=== PATIENT | female | born 1940 | race Caucasian/White ===

== ENCOUNTER 2018-12-24 14:28 | Emergency (ER) | payer MEDICARE, SELFPAY ==
[2018-12-24 14:30] VITALS: BP 121/76; PULSE 74; RESP 14; TEMP 36.7; O2SAT 97
--- NOTE | 2018-12-24 15:01 | ED.GENADUL_ITS ---
Discharge Plan Disposition Patient Disposition: HOME Condition: Stable Discharge Details Chief Complaint: RashLesion Clinical Impression: Skin plaque Primary Care Provider: Eric Graham ED Provider: Mat Castellanos Home Meds and New Rx's Prescriptions: New hydrocortisone 1 % cream 1 applic TP BID PRN (Reason: rash) Qty: 14.2 RF: 0 Continued amlodipine 5 MG tablet 5 mg PO DAILY RF: 0 pravastatin 10 MG tablet 40 mg PO DAILY RF: 0 enalapril maleate 5 MG tablet 20 mg PO DAILY RF: 0 multivitamin [Multi-Day] 1 EACH tablet 1 ea PO DAILY RF: 0 ascorbic acid (vitamin C) [Vitamin C] 1,000 MG tablet 1,000 mg PO DAILY RF: 0 aspirin, buffered 325 MG tablet 325 mg PO DAILY RF: 0 zinc 50 MG tablet 50 mg PO DAILY RF: 0 docusate sodium [Stool Softener] 100 MG tablet 200 mg PO DAILY RF: 0 vitamin B complex 1 EACH capsule 1 ea PO DAILY RF: 0 fish oil-dha-epa 1 EACH capsule 1 ea PO DAILY RF: 0 magnesium oxide 500 MG capsule 500 mg PO DAILY RF: 0 biotin 2,500 MCG capsule 2,500 - 5,000 mcg PO DAILY RF: 0 Metamucil (with sugar) 2,730 GM powder 2.6 gm PO DAILY RF: 0 cholecalciferol (vitamin D3) [Vitamin D3] 1,000 unit Tablet 1,000 unit PO DAILY RF: 0 Irlanda-D 24 Hour 1 EACH tablet extended release 24 hr 1 ea PO DAILY PRN PRNQty: 30 RF: 0 Discharge Instructions Additional Instructions: As we discussed, I will refer you to dermatology for follow-up. A referral was placed to care management today. Continue your regular medications. May trial the prescribed hydrocortisone cream. Return for more diffuse rash, the development of a fever, pain or any other acute concerns. Follow-up with your doctor in [place] upon your return to home. Medical Decision Making 78-year-old female who lives most of the year in [facility], presents with right lower extremity plaque that she is noted overlying the medial gastrocnemius for 2 weeks. It is raised, erythematous, nontender, without an underlying base, mass, or fluctuance. She returns to home in 6 to 8 weeks. I will refer her to dermatology for evaluation and consideration of punch biopsy. Referral placed to care m anagement and patient informed as to process. She is stable for discharge to home at this time HPI General Mode of arrival: ambulatory . Date/Time Provider Initiated Documentation: 12/24/18 14:53 . Limitations to Documentation: no limitations . Information obtained by: patient . History of Present Illness 78 year old F presents to the emergency department with the chief complaint of Right calf lesion, described as mild, Quality is described as constant, and is localized to the right and lower extremity. Patient reports no radiation. Patient started experiencing this week(s) and it has been constant. No relieving factors improve symptom(s), No exacerbating factors reported . Patient did receive the following treatments prior to arrival, none Related Data Home Medications Medication Instructions Recorded Confirmed amlodipine 5 mg PO DAILY 01/06/14 12/24/18 enalapril maleate 20 mg PO DAILY 01/06/14 12/24/18 pravastatin 40 mg PO DAILY 01/06/14 12/24/18 Metamucil (with sugar) 2.6 gm PO DAILY 01/08/16 12/24/18 ascorbic acid (vitamin C) [Vitamin 1,000 mg PO DAILY 01/08/16 12/24/18 C] aspirin, buffered 325 mg PO DAILY 01/08/16 12/24/18 biotin 2,500 - 5,000 mcg PO DAILY 01/08/16 12/24/18 docusate sodium [Stool Softener] 200 mg PO DAILY 01/08/16 12/24/18 fish oil-dha-epa 1 ea PO DAILY 01/08/16 12/24/18 magnesium oxide 500 mg PO DAILY 01/08/16 12/24/18 multivitamin [Multi-Day] 1 ea PO DAILY 01/08/16 12/24/18 vitamin B complex 1 ea PO DAILY 01/08/16 12/24/18 zinc 50 mg PO DAILY 01/08/16 12/24/18 Irlanda-D 24 Hour 1 ea PO DAILY PRN PRN #30 11/25/16 12/24/18 tab.er.24h cholecalciferol (vitamin D3) 1,000 unit PO DAILY 12/24/18 12/24/18 [Vitamin D3] hydrocortisone 1 applic TP BID PRN #14.2 gm 12/24/18 Previous Rx's Medication Instructions Recorded Irlanda-D 24 Hour 1 ea PO DAILY PRN PRN #30 07/21/17 tab.er.24h hydrocortisone 1 applic TP BID PRN #14.2 gm 12/24/18 Allergies Allergy/AdvReac Type Severity Reaction Status Date / Time No Known Allergies Allergy Unverified 12/24/18 14:37 General Stated Complaint: RashLesion NEW: 4 Review of Systems Review of Systems 6 systems reviewed and otherwise negative. No fever, chills, trauma, she is otherwise been well [facility] Social History Smoking/Tobacco Use Status: Current-Occasional Alcohol Intake: current Alcohol Intake frequency: a few times a month Drug use: Never Do you feel safe at home: Yes Do you feel safe in your relationship?: Yes Exam Narrative Exam Narrative: GEN: awake, alert, oriented 3. Pleasant, well groomed, interactive. HEAD: Normocephalic, atraumatic ENT: Mucous membranes moist, oropharynx unremarkable, External ear exam unrema rkable EYES: PERRL, EOMI EXT: Full ROM, no edema, normal sensation throughout. The right medial lower leg overlying the medial gastrocnemius on the anterior side shows a mobile, erythematous, slightly raised plaque that is nonblanching. It is not tender, there is no fluctuance. Neuro: Grossly normal neurologic exam, conversant, interactive. Psych: Speech fluent, thoughts congruent, affect normal Course Vital Signs Temperature 36.7 C 12/24/18 14:30 Pulse 74 12/24/18 14:30 Respiratory Rate 14 12/24/18 14:30 Blood Pressure 121/76 12/24/18 14:30 Pulse Oximetry 97 12/24/18 14:30 Temperature 36.7 C 12/24/18 14:30 Temperature Source Skin 12/24/18 14:30 Pulse 74 12/24/18 14:30 Respiratory Rate 14 12/24/18 14:30 Respiratory Effort 12/24/18 14:39 Blood Pressure 121/76 12/24/18 14:30 Blood Pressure Position Sitting 12/24/18 14:30 Pulse Oximetry 97 12/24/18 14:30 Oxygen Delivery Method Room Air 12/24/18 14:30 Oxygen Flow Rate 0 12/24/18 14:30 Pain Level 0 12/24/18 14:30
--- NOTE | 2018-12-25 15:09 | CMPROGNOTE_ITS ---
Care Management Progress Note Per MD request, CM faxed referral to [facility] for follow up.
--- NOTE | 2018-12-25 15:09 | PDOC.ERCMPRO ---
Care Management Progress Note Per MD request, CM faxed referral to [facility] for follow up.
== END 2018-12-24 15:09 | disposition home or self-care (01) ==
PROVIDERS: Emergency Provider Emergency Medicine; PCP Internal Medicine
DX: L98.8 Other specified disorders of the skin and subcutaneous tissue (principal)
CPT/HCPCS: 99283

== ENCOUNTER 2019-01-03 20:01 | Emergency (ER) | payer MEDICARE, SELFPAY ==
[2019-01-03 20:09] VITALS: BP 135/58; PULSE 66; RESP 16; TEMP 36.4; O2SAT 99
--- NOTE | 2019-01-03 20:20 | ED.GENADUL_ITS ---
Discharge Plan Disposition Patient Disposition: HOME Condition: Good Discharge Details Chief Complaint: Laceration Clinical Impression: Encounter for post-traumatic wound check Primary Care Provider: Eric Graham ED Provider: Laci Hernandez Meds and New Rx's Prescriptions: Continued amlodipine 5 MG tablet 5 mg PO DAILY RF: 0 pravastatin 10 MG tablet 40 mg PO DAILY RF: 0 enalapril maleate 5 MG tablet 20 mg PO DAILY RF: 0 multivitamin [Multi-Day] 1 EACH tablet 1 ea PO DAILY RF: 0 ascorbic acid (vitamin C) [Vitamin C] 1,000 MG tablet 1,000 mg PO DAILY RF: 0 aspirin, buffered 325 MG tablet 325 mg PO DAILY RF: 0 zinc 50 MG tablet 50 mg PO DAILY RF: 0 docusate sodium [Stool Softener] 100 MG tablet 200 mg PO DAILY RF: 0 vitamin B complex 1 EACH capsule 1 ea PO DAILY RF: 0 fish oil-dha-epa 1 EACH capsule 1 ea PO DAILY RF: 0 magnesium oxide 500 MG capsule 500 mg PO DAILY RF: 0 biotin 2,500 MCG capsule 2,500 - 5,000 mcg PO DAILY RF: 0 Metamucil (with sugar) 2,730 GM powder 2.6 gm PO DAILY RF: 0 cholecalciferol (vitamin D3) [Vitamin D3] 1,000 unit Tablet 1,000 unit PO DAILY RF: 0 hydrocortisone 1 % cream 1 applic TP BID PRN (Reason: rash) Qty: 14.2 RF: 0 Discharge Instructions Additional Instructions: Wound care as we discussed. Continue antibiotic ointment. Keep covered with Telfa gauze. Return to ED for fever, chills, leg pain/redness/swelling. Discharge Data Discharge Date/Time-TO BE ENTERED AT DEPARTURE: 01/03/19 20:39 Medical Decision Making Patient has a normal healing wound to the left holland. There is no evidence of infection. She is not diabetic and she has no vascular compromise. Continue wound care as before. HPI General Date/Time Provider Initiated Documentation: 01/03/19 20:19 . Limitations to Documentation: no limitations . Information obtained by: patient and RN notes reviewed . HPI Narrative: Patient presents to ED with scrape to her left holland which has been present for almost two weeks. She has been taking care of it at home. Today a friend of hers, who is a nurse, saw the wound and thought she should be evaluated. Patient denies significant pain. There is no fevers or chills. She has been using Bactroban cream that somebody gave her. Related Data Home Medications Medication Instructions Recorded Confirmed amlodipine 5 mg PO DAILY 01/06/14 01/03/19 enalapril maleate 20 mg PO DAILY 01/06/14 01/03/19 pravastatin 40 mg PO DAILY 01/06/14 01/03/19 Metamucil (with sugar) 2.6 gm PO DAILY 01/08/16 01/03/19 ascorbic acid (vitamin C) [Vitamin 1,000 mg PO DAILY 01/08/16 01/03/19 C] aspirin, buffered 325 mg PO DAILY 01/08/16 01/03/19 biotin 2,500 - 5,000 mcg PO DAILY 01/08/16 01/03/19 docusate sodium [Stool Softener] 200 mg PO DAILY 01/08/16 01/03/19 fish oil-dha-epa 1 ea PO DAILY 01/08/16 01/03/19 magnesium oxide 500 mg PO DAILY 01/08/16 01/03/19 multivitamin [Multi-Day] 1 ea PO DAILY 01/08/16 01/03/19 vitamin B complex 1 ea PO DAILY 01/08/16 01/03/19 zinc 50 mg PO DAILY 01/08/16 01/03/19 cholecalciferol (vitamin D3) 1,000 unit PO DAILY 12/24/18 01/03/19 [Vitamin D3] hydrocortisone 1 applic TP BID PRN #14.2 gm 12/24/18 01/03/19 Previous Rx's Medication Instructions Recorded hydrocortisone 1 applic TP BID PRN #14.2 gm 12/24/18 Allergies Allergy/AdvReac Type Severity Reaction Status Date / Time No Known Allergies Allergy Unverified 01/03/19 20:19 General Stated Complaint: Laceration NEW: 4 Review of Systems Constitutional Denies chills and Denies fever(s) Integumentary/Breasts Reports wounds [facility] Medical History COPD (chronic obstructive pulmonary disease) (Inactive) HTN (hypertension) (Chronic) Hypercholesterolemia (Acute) Surgical History S/P arthroscopic knee surgery (Acute) S/P hysterectomy (Acute) Social History Smoking/Tobacco Use Status: Current-Occasional Alcohol Intake: current Alcohol Intake frequency: a few times a month Drug use: Never Do you feel safe at home: Yes Do you feel safe in your relationship?: Yes Exam Const General: cooperative, comfortable and no acute distress Orientation: alert and oriented x3 Skin Other: Abrasion consistent with scraped holland on the left. Good eschar present with no drainage. Mild erythema around wound edges. No significant erythema, warmth, tenderness to suggest infection. Extrem Other: Left lower extremity without swelling or edema. Strong DP and PT pulse present. Course Vital Signs Temperature 97.5 F L 01/03/19 20:09 Pulse 66 01/03/19 20:09 Respiratory Rate 16 01/03/19 20:09 Blood Pressure 135/58 L 01/03/19 20:09 Pulse Oximetry 99 01/03/19 20:09 Temperature 97.5 F L 01/03/19 20:09 Temperature Source Skin 01/03/19 20:09 Pulse 66 01/03/19 20:09 Respiratory Rate 16 01/03/19 20:09 Blood Pressure 135/58 L 01/03/19 20:09 Blood Pressure Position Sitting 01/03/19 20:09 Pulse Oximetry 99 01/03/19 20:09 Oxygen Delivery Method Room Air 01/03/19 20:09 Oxygen Flow Rate 0 01/03/19 20:09 Pain Level 0 01/03/19 20:09
== END 2019-01-03 20:39 | disposition home or self-care (01) ==
PROVIDERS: Emergency Provider Emergency Medicine; PCP Internal Medicine
DX: S80.812A Abrasion, left lower leg, initial encounter (principal); X58.XXXA Exposure to other specified factors, initial encounter; J44.9 Chronic obstructive pulmonary disease, unspecified; F17.210 Nicotine dependence, cigarettes, uncomplicated; I10 Essential (primary) hypertension
CPT/HCPCS: 99282

== ENCOUNTER 2020-11-14 22:38 | Emergency (ER) | payer OTHER, MEDICARE, SELFPAY ==
[2020-11-14 22:28] VITALS: BP 190/79; PULSE 74; RESP 18; TEMP 36.4; O2SAT 100
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
[2020-11-14 22:44] LABS: Abs Immature Grans 0.02 10^3/uL (0.0-0.06); Absolute Basophil Count 0.08 10^3/uL (0.0-0.2); Absolute Eosinophil Count 0.47 10^3/uL (0.0-0.7); Absolute Lymphocyte Count 2.52 10^3/uL (1.2-3.4); Absolute Monocyte Count 0.74 10^3/uL (0.1-0.8); Absolute Neutrophil Count 4.86 10^3/uL (1.2-6.7); Basophils % 0.9; Eosinophils % 5.4; HCT 40.3 % (36.0-46.0); HGB 13.3 g/dL (11.2-15.7); Immature Grans % 0.2; MCH 31.7 pg (27.0-33.0); MPV 10.1 fL (8.0-11.0); Monocytes % 8.5; Nucleated RBC 0 %; Platelet Count 254 10^3/uL (130-400); RDW-SD 45.9 fL; WBC 8.69 10^3/uL (4.4-10.8)
[2020-11-14 22:45] VITALS: BP 184/81; PULSE 73; RESP 8; O2SAT 99
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
[2020-11-14 22:57] LABS: ALT 37 U/L (14-59); AST 32 U/L (15-37); Alkaline Phosphatase 125 U/L (46-116); Anion Gap 9.9 mmol/L (3-11); BUN 29 mg/dL (7-18); Bilirubin, Total 0.4 mg/dL (0.2-1.0); CO2 29.1 mmol/L (21.0-32.0); CREATININE 1.5 mg/dL (0.55-1.02); Calcium 9.5 mg/dL (8.5-10.1); Chloride 105 mmol/L (98-107); Estimated GFR 33.25 (mL/min/1.73m2); Glucose 102 mg/dL (74-106); Lipase 71 U/L (73-393); Sodium 144 mmol/L (136-145); Total Protein 7.6 g/dL (6.4-8.2)
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
[2020-11-14 23:02] LABS: ETHANOL BLOOD < 3.0 mg/dL (<3)
[2020-11-14 23:15] VITALS: BP 205/82; PULSE 74; RESP 16; O2SAT 100
[2020-11-14 23:50] LABS: Bilirubin Negative (Negative); Blood Trace-intact (Negative); Clarity Sl Cloudy (Clear); Glucose Negative (Negative); Ketones Negative (Negative); Leukocyte Esterase Trace (Negative); Nitrite Negative (Negative); Urobilinogen 0.2 EU/dL (Up TO 0.2)
[2020-11-15] VITALS (48 sets, daily range): BP systolic 156–201; BP diastolic 68–85; PULSE 74–83; RESP 10–22; O2SAT 84–100
[2020-11-15] LABS: Bacteria Few HPF (Negative); Epithelial Cells Rare HPF (Negative); WBC 0-2 HPF (0-5)
[2020-11-15] MEDS: Tetracaine 0.5% 4 ML BTL OP
[2020-11-15 00:01] LABS: C & S Indicated? No; Casts Negative LPF (Negative); Crystals Moderate Amorphous HPF (Negative); Mucus Negative (Negative)
[2020-11-15] MEDS: ceFAZolin 1 GM/50 ML BAG IVPB (00:01)
[2020-11-15] MEDS: Fluorescein STRIPS 100/BOX 1 MG OP ×2 (00:02→04:44)
[2020-11-15 00:10] LABS: *AMPHETAMINES SCREEN URINE Negative (Negative); *BARBITURATES SCREEN URINE Negative (Negative); *BENZODIAZEPINES SCREEN URINE Negative (Negative); Cannabinoids THC Negative (Negative); Cocaine Screen,Urine Negative (Negative); METHADONE URINE SCREEN Negative (Negative); OPIATES URINE SCREEN Negative (Negative); Tricyclic Antidepressants Negative (Negative)
[2020-11-15] MEDS: Tetanus & Diphtheria Tox,ADULT 0.5 ML VIAL IM (00:20)
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
[2020-11-15] MEDS: Lactated Ringers 1,000 ML 150 ML IV (00:25)
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
[2020-11-15] MEDS: Ondansetron 4 MG/2 ML VIAL IVP ×2 (01:12→04:45)
--- NOTE | 2020-11-15 01:15 | RT.EKG_ITS ---
APPROVED REPORT Exam: Resting ECG Reason for Exam: chest pain Patient Location: E HR:78 bpm ECG Measurements Heart Rate 78 AXIS NJ 166 P 72 QRSd 98 QRS 22 QT 409 T -39 QTc 465 Conclusion Sinus rhythm...normal P axis, V-rate 60- 99 Probable left atrial enlargement...P >50mS, <-0.10mV V1 Probable left ventricular hypertrophy...(RaVL+SV3)xQRSd >300 Nonspecific T abnormalities, inferior leads...T <-0.10mV, II III aVF I have reviewed and interpreted ECG and agree with software generated interpretation.
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
[2020-11-15] MEDS: Ketorolac 15 MG/ML VIAL IVP (04:42)
[2020-11-15] MEDS: Erythromycin Ophth Oint 3.5 GM TUBE OS (05:20)
[2020-11-15] MEDS: Ondansetron O.D.T. 4 MG TABEF, 3 TABS/BTL PO (05:20)
--- NOTE | 2020-11-16 06:27 | NUR.NOTE ---
Nursing Note: Referral faxed to ENT for follow up regarding ED visit.
== END 2020-11-15 05:31 | disposition home or self-care (01) ==
PROVIDERS: Emergency Provider Emergency Medicine; PCP Internal Medicine
DX: S06.0X0A Concussion without loss of consciousness, initial encounter (principal); S01.81XA Laceration without foreign body of other part of head, initial encounter; S02.2XXA Fracture of nasal bones, initial encounter for closed fracture; S61.512A Laceration without foreign body of left wrist, initial encounter; S05.02XA Injury of conjunctiva and corneal abrasion without foreign body, left eye, initial encounter; V40.5XXA Car driver injured in collision with pedestrian or animal in traffic accident, initial encounter; M79.632 Pain in left forearm; V53.6XXA Passenger in pick-up truck or van injured in collision with car, pick-up truck or van in traffic accident, initial encounter
CPT/HCPCS: 12001; 12014; 36415; 71250; 80053; 80307; 83690; 90471; 93005; 96361; 96365; 96375; 96376; 99285; 70450; 70486; 72125; 73090; 73130; 74176; 80320; 81003; 81015; 85025; 93010; J0690; J1885; J2405

== ENCOUNTER 2020-12-14 15:36 | Observation (INO) | payer MEDICARE, SELFPAY ==
[2020-12-14] VITALS (45 sets, daily range): BP systolic 99–153; BP diastolic 51–78; PULSE 52–70; RESP 12–21; TEMP 36.1–36.4; O2SAT 95–100
--- NOTE | 2020-12-14 15:30 | RT.EKG_ITS ---
APPROVED REPORT Exam: Resting ECG Reason for Exam: light headed Patient Location: E HR:60 bpm ECG Measurements Heart Rate 60 AXIS TN 172 P 74 QRSd 97 QRS 38 QT 430 T 77 QTc 429 Conclusion Sinus rhythm...normal P axis, V-rate 60- 99 no significant changes from ekg on 11/15
--- NOTE | 2020-12-14 16:15 | RT.EKG_ITS ---
APPROVED REPORT Exam: Resting ECG Reason for Exam: chest pain, presyncope Patient Location: E HR:57 bpm ECG Measurements Heart Rate 57 AXIS WI 179 P 68 QRSd 101 QRS 25 QT 441 T 61 QTc 431 Conclusion Sinus bradycardia...rate< 60
--- NOTE | 2020-12-14 16:30 | DI.CT_ITS ---
Exam(s) CT CHEST PE CTA EXAM: CT CHEST PE CTA CLINICAL HISTORY: chest pain, shortness of breath. TECHNIQUE: Imaging Protocol: Axial CT angiography was performed with multi-slice acquisition and mu lti-planar and/or 3D reconstructions. CONTRAST MATERIAL: Intravenous: Omnipaque 350 Contrast volume:100 ml COMPARISON: CT CT CHEST/ABD/PEL WO from 11/15/2020 FINDINGS: Pulmonary Arteries: No evidence of filling defect to suggest pulmonary emboli. Tracheobronchial tree: Patent where visualized. Mediastinum and Kristie: No dominant adenopathy or fluid collection. Pulmonary parenchyma: No consolidation or dominant measurable mass. Bilateral apical scarring and emp hysematous changes. Pleura: No effusion or pneumothorax. Heart: The heart is not dilated. Moderate coronary artery calcifications are seen. Aorta: Ascending aorta 4 cm. [id number] atherosclerotic changes. Upper abdomen: Large quantity of stool, otherwise unremarkable. Bones: Unremarkable for age. IMPRESSION: Apical scarring and emphysematous changes. No evidence of pulmonary embolism. RADIATION DOSE DELIVERED: 222.67mGy.cm Total DLP DATA REPOSITORY: All CT scans at this facility are submitted to the National Radiology Data Registry (NRDR) Dose Index Registry (DIR) with the [employer] (ACR). RADIATION OPTIMIZATION: All CT scans at this facility use at least one of these dose optimization te chniques: automated exposure control; mA and/or kV adjustment per patient size (includes targeted exa ms where dose is matched to clinical indication); or iterative reconstruction.
[2020-12-14 16:45] LABS: Abs Immature Grans 0.01 10^3/uL (0.0-0.06); Absolute Basophil Count 0.06 10^3/uL (0.0-0.2); Absolute Eosinophil Count 0.37 10^3/uL (0.0-0.7); Absolute Lymphocyte Count 1.78 10^3/uL (1.2-3.4); Absolute Monocyte Count 0.53 10^3/uL (0.1-0.8); Absolute Neutrophil Count 2.95 10^3/uL (1.2-6.7); Basophils % 1.1; Eosinophils % 6.5; HCT 36.5 % (36.0-46.0); HGB 11.9 g/dL (11.2-15.7); Immature Grans % 0.2; Lymphocytes % 31.2; MCH 32.2 pg (27.0-33.0); MCHC 32.6 % (32.0-36.0); MCV 98.9 fL (80-95); MPV 10.1 fL (8.0-11.0); Monocytes % 9.3; Neutrophils % 51.7; Nucleated RBC 0 %; Platelet Count 237 10^3/uL (130-400); RBC 3.69 10^6/uL (3.93-5.22); RDW 13.2 % (11.7-14.6); RDW-SD 48.2 fL
[2020-12-14 17:06] LABS: ALT 33 U/L (14-59); AST 38 U/L (15-37); Albumin 3.6 g/dL (3.4-5.0); Alkaline Phosphatase 94 U/L (46-116); Anion Gap 5.7 mmol/L (3-11); BUN 35 mg/dL (7-18); Bilirubin, Total 0.4 mg/dL (0.2-1.0); CO2 29.3 mmol/L (21.0-32.0); CREATININE 1.2 mg/dL (0.55-1.02); Calcium 8.9 mg/dL (8.5-10.1); Chloride 105 mmol/L (98-107); Estimated GFR 43.01 (mL/min/1.73m2); Glucose 100 mg/dL (74-106); Magnesium 2.1 mg/dL (1.8-2.4); NT-proBNP 96 pg/mL (<300); Potassium 4.4 mmol/L (3.5-5.1); Sodium 140 mmol/L (136-145); TSH 4.59 uIU/mL (0.36-3.74); Total Protein 6.8 g/dL (6.4-8.2); Troponin I < 0.05 ng/mL (<0.06)
[2020-12-14] MEDS: Normal Saline - Diluent 50 ML VIAL IV (17:36)
[2020-12-14] MEDS: Omnipaque 350 MG/ML 100 ML BTL IJ (17:36)
--- NOTE | 2020-12-14 18:25 | DI.VRAD_ITS ---
PROCEDURE INFORMATION: Exam: CTA Chest With Contrast Exam date and time: 12/14/2020 4:45 PM Age: 80 years old Clinical indication: Pain; On breathing TECHNIQUE: Imaging protocol: Computed tomographic angiography of the chest with contrast. 3D rendering (Not supervised by radiologist): MIP and/or 3D reconstructed images were created by the technologist. COMPARISON: CT CHEST/ABD/PEL WO 11/15/2020 12:06 AM FINDINGS: Pulmonary arteries: Hounsfield attenuation of the right pulmonary artery is 465 and therefore this study is diagnostic. No pulmonary emboli seen. Aorta: No aneurysm or dissection. There is atherosclerotic calcification to the aortic root, aortic arch, descending thoracic aorta and coronary arteries. Lungs: There is evidence of mild emphysematous changes. Atelectatic lung is seen within the posterior upper lobes with air bronchograms present, series 4, image 6. There is mild bibasilar dependent atelectasis. Pleural spaces: No pleural effusion or pneumothorax. Mediastinum: Visualized portion of the thyroid is normal in appearance. Heart size is upper limits of normal to minimally enlarged with cardiothoracic ratio of 12.9/25.1. No pericardial effusion or pneumothorax. Distal esophagus is unremarkable in appearance. Lymph nodes: No mediastinal lymphadenopathy. Superior abdomen: Visualized portion of the liver, gallbladder, kidneys, spleen and pancreas are unremarkable for patient's stated age. The stomach is moderately distended with enteric content. There is significant atherosclerotic calcification within the visualized abdominal aorta and splenic arteries. Bones/joints: No acute osseous injury or underlying osseous mass. Soft tissues: Unremarkable. IMPRESSION: 1. No pulmonary emboli. 2. Atelectatic lung within the posterior upper lobes with air bronchograms. Differential would include pulmonary consolidation, pulmonary edema, severe interstitial lung disease, non obstructive atelectasis, etc. 3. Mild emphysematous changes Dictated and Authenticated by: Cj Mcfarlane MD. Ordering:AURORA Gale MD
--- NOTE | 2020-12-14 19:27 | W.ED.GENAD ---
Discharge Plan Discharge Details Chief Complaint: Dizzy/Sync Admit Date/Time: 12/14/20 21:48 Admit Provider: Derek Butt Attending Provider: Derek Butt Primary Care Provider: Eric Graham ED Provider: Shahla England Discharge Data Discharge Date/Time-TO BE ENTERED AT DEPARTURE: 12/14/20 22:48 Medical Decision Making Patient is alert, oriented, pleasant, of decisional capacity Her story is concerning And She Had a Stress Test in September That Shows Inferior Lateral ST Changes with 1 Mm of Depression had worsening of her symptoms with persistent intermittent symptoms over the course of the past 3 days EKG and troponin are negative Case discussed with jeweler apprentice, Dr. Perera at [facility] and given patient's worsening symptoms, she will be accepted to their facility, however they do not have beds at this time, they believe they will be able to accept her tomorrow, Dr. Perera recommends metoprolol and aspirin, he does not recommend any additional intervention at this time, I will not initiate metoprolol at this time as her blood pressure was soft upon arrival and she did take her antihypertensives today, I discussed the case with Dr. Butt who is willing to admit the patient at this facility pending transfer to [facility] likely tomorrow She has been chest pain-free throughout this evaluation, she received 324 mg of aspirin Her blood pressure is stable and I see no need for additional intervention at this time Her CTA does not show acute pathology, when compared to prior it is unchanged She has a known thoracic aortic aneurysm of 4.2 cm without any evidence of rupture She has no evidence of pulmonary embolism Medical Records Medical records reviewed: Yes I reviewed the patient's medical records. Lab Data Lab results reviewed: Yes I reviewed the patient's lab results. ECG Data Prior ECG tracings: available for review HPI General Mode of arrival: ambulatory. Date/Time Provider Initiated Documentation: 12/14/20 16:01. Limitations to Documentation: no limitations. Information obtained by: patient. HPI Narrative: This 80-year-old female with history of hypertension presents with report of presyncopal symptoms for the past 3 days. Typically occurs around 12:48 in the afternoon the last approximately an hour. She reports chest tightness with lightheadedness. She denies any nausea. She denies any shortness of breath. She states that she has been experiencing these episodes for the past several months. She did have an episode in September she was evaluated by her primary care physician and had a Holter monitor and stress test performed at that time. She was told that her stress test was normal. She lives predominantly in [place] but of reside in [place] for several months of the year and has just recently acquired a primary care physician. She is not seen a jeweler apprentice here. She states that she had a syncopal event on November 22 and was not evaluated for this. She has not had a syncopal event during this occasion. States that her chest pain is since resolved and she is currently asymptomatic. Her symptoms began approximately 1230. She describes it as a pressure sensation and she feels like she needs to remove her bra. She states she felt fine during the day. She denies exertional component to her symptoms. She denies history of cardiac event. Related Data Home Medications Medication Instructions Recorded Confirmed Metamucil (with sugar) 2.6 g PO DAILY 01/08/16 12/14/20 ascorbic acid (vitamin C) [Vitamin 1,000 mg PO DAILY 01/08/16 12/14/20 C] aspirin,buffd-calcium carb-mag 325 mg PO DAILY 01/08/16 12/14/20 docusate sodium [Stool Softener] 200 mg PO DAILY 01/08/16 12/14/20 fish oil-dha-epa 1 ea PO DAILY 01/08/16 12/14/20 magnesium oxide 500 mg PO DAILY 01/08/16 12/14/20 multivitamin [Multi-Day] 1 ea PO DAILY 01/08/16 12/14/20 vitamin B complex 1 ea PO DAILY 01/08/16 12/14/20 zinc 50 mg PO DAILY 01/08/16 12/14/20 cholecalciferol (vitamin D3) 1,000 unit PO DAILY 12/24/18 12/14/20 [Vitamin D3] rosuvastatin 20 mg PO DAILY 11/14/20 12/14/20 amlodipine 5 mg tablet 5 mg PO BID tab 12/07/20 12/14/20 enalapril maleate 5 mg tablet 20 mg PO BID tab 12/07/20 12/14/20 Allergies Allergy/AdvReac Type Severity Reaction Status Date / Time No Known Allergies Allergy Verified 12/14/20 15:45 General Stated Complaint: Dizzy/Sync NEW: 3 Review of Systems All systems reviewed & are unremarkable except as noted in HPI and below PFSH Medical History (Updated 12/14/20 @ 21:45 by Derek Butt MD) COPD (chronic obstructive pulmonary disease) HTN (hypertension) Hypercholesterolemia Surgical History S/P arthroscopic knee surgery S/P hysterectomy Family History Father Heart disease Social History Smoking/Tobacco Use Status: Current-Occasional Smoking risk assessment performed?: Yes Alcohol Intake: current Alcohol Intake frequency: a few times a month Drug use: Never Do you feel safe at home: Yes Do you feel safe in your relationship?: Yes Exam Const General: cooperative and no acute distress HENMT Head: normal to inspection Mouth: oral mucosae normal Eyes Pupils: PERRL Chest Chest: normal inspection of the chest Resp Effort & Inspection: normal respiratory effort Auscultation: clear to auscultation bilaterally Cardio Rate: regular rate Rhythm: regular rhythm GI Inspection: normal to inspection Other: Nontender abdominal exam Skin General skin exam: no rashes or lesions noted Neuro General: patient alert and patient oriented x3 Extrem Other: Neurovascularly intact, no calf tenderness or swelling Psych Appearance: grossly normal Course Vital Signs Vital signs: Vital Signs Temperature 36.1 C L 12/14/20 15:41 Pulse 69 12/14/20 15:41 Respiratory Rate 17 12/14/20 15:41 Blood Pressure 99/51 L 12/14/20 15:41 Pulse Oximetry 99 12/14/20 15:41 Temperature 36.1 C L 12/14/20 15:41 Temperature Source Temporal Artery Scan 12/14/20 15:41 Pulse 60 12/14/20 18:00 Pulse 61 12/14/20 17:20 Respiratory Rate 16 12/14/20 19:20 Respiratory Effort Non-Labored 12/14/20 19:20 Respiratory Depth Normal 12/14/20 19:20 Respiratory Pattern Normal 12/14/20 19:20 Blood Pressure 128/62 12/14/20 17:45 Blood Pressure Mean 69 12/14/20 18:15 Blood Pressure Position Sitting 12/14/20 15:41 Pulse Oximetry 98 12/14/20 18:20 Oxygen Delivery Method Room Air 12/14/20 15:41 Oxygen Flow Rate 0 12/14/20 15:41 Pain Level 0 12/14/20 15:41 Lab/Test Results Lab/Test Results: Laboratory Tests Range/Units 12/14/20 12/14/20 16:36 16:36 WBC (4.4-10.8) 10^3/uL 5.70 RBC (3.93-5.22) 10^6/uL 3.69 L Hgb (11.2-15.7) g/dL 11.9 Hct (36.0-46.0) % 36.5 MCV (80-95) fL 98.9 H MCH (27.0-33.0) pg 32.2 MCHC (32.0-36.0) % 32.6 RDW (11.7-14.6) % 13.2 Plt Count (130-400) 10^3/uL 237 MPV (8.0-11.0) fL 10.1 Immature Gran % 0.2 Neutrophils % 51.7 Lymphocytes % 31.2 Monocytes % 9.3 Eosinophils % 6.5 Basophils % 1.1 Nucleated RBC % % 0 Absolute Neutrophils (1.2-6.7) 10^3/uL 2.95 Absolute Lymphocytes (1.2-3.4) 10^3/uL 1.78 Absolute Monocytes (0.1-0.8) 10^3/uL 0.53 Absolute Eosinophils (0.0-0.7) 10^3/uL 0.37 Absolute Basophils (0.0-0.2) 10^3/uL 0.06 Sodium (136-145) mmol/L 140 Potassium (3.5-5.1) mmol/L 4.4 Chloride (98-107) mmol/L 105 Carbon Dioxide (21.0-32.0) mmol/L 29.3 Anion Gap (3-11) mmol/L 5.7 BUN (7-18) mg/dL 35 H Creatinine (0.55-1.02) mg/dL 1.2 H Estimated GFR/1.73 m2 (mL/min/1.73m2) 43.01 Glucose (74-106) mg/dL 100 Calcium (8.5-10.1) mg/dL 8.9 Magnesium (1.8-2.4) mg/dL 2.1 Total Bilirubin (0.2-1.0) mg/dL 0.4 AST (15-37) U/L 38 H ALT (14-59) U/L 33 Alkaline Phosphatase (46-116) U/L 94 Troponin I (<0.06) ng/mL < 0.05 NT-Pro-B Natriuret Pep (<300) pg/mL 96 Total Protein (6.4-8.2) g/dL 6.8 Albumin (3.4-5.0) g/dL 3.6 TSH (0.36-3.74) uIU/mL 4.59 H
[2020-12-14 19:57] LABS: Troponin I < 0.05 ng/mL (<0.06)
[2020-12-14] MEDS: Aspirin 81 MG CHEW 324 MG CH (20:28)
--- NOTE | 2020-12-14 21:37 | HPE_ITS ---
Date of service: 12/14/20 Time of Service: 21:37 Assessment and Plan Assessment and plan (1) Chest pain: Status: Acute Assessment and plan: Atypical CP, modest probability ACS. Will continue ASA, trend trop and await transfer [facility] for cath. Usual meds as is in meantime. Reviewed ADs, requests Full Code. History of Present Illness History of Present Illness Chief Complaint: CP Narrative: 80 female had several episodes of exertional chest pain in September. Stress test (in [place]) reported to be negative. 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 Denies any palliative or provocative factors, just resolves spontaneously. Similar episode today, and further noted BP to be in 90s so came for evaluation. No CP since arrival. Here in ER w/u of note for trop neg x two, EKG showing approx [address] depression lead ll, minimal other inferior leads, all similar to baseline. CTA negative. Case reviewed with [facility], accepted by service of Dr. Perera with probable bed in AM for planned cath. Patient states she feels entirely well at present. Review of Systems All systems reviewed & are unremarkable except as noted in HPI and below PFSH Medical History (Updated 12/14/20 @ 21:45 by Derek Butt MD) COPD (chronic obstructive pulmonary disease) HTN (hypertension) Hypercholesterolemia Surgical History S/P arthroscopic knee surgery S/P hysterectomy Family History Father Heart disease Social History Smoking/Tobacco Use Status: Current-Occasional Smoking risk assessment performed?: Yes Alcohol Intake: current Alcohol Intake frequency: a few times a month Drug use: Never Do you feel safe at home: Yes Do you feel safe in your relationship?: Yes Meds Allergies and Home Medications Allergies Allergy/AdvReac Type Severity Reaction Status Date / Time No Known Allergies Allergy Verified 12/14/20 15:45 Home Medications Medication Instructions Recorded Confirmed Type Metamucil (with sugar) 2.6 g PO DAILY 01/08/16 12/14/20 History ascorbic acid (vitamin C) [Vitamin 1,000 mg PO DAILY 01/08/16 12/14/20 History C] aspirin,buffd-calcium carb-mag 325 mg PO DAILY 01/08/16 12/14/20 History docusate sodium [Stool Softener] 200 mg PO DAILY 01/08/16 12/14/20 History fish oil-dha-epa 1 ea PO DAILY 01/08/16 12/14/20 History magnesium oxide 500 mg PO DAILY 01/08/16 12/14/20 History multivitamin [Multi-Day] 1 ea PO DAILY 01/08/16 12/14/20 History vitamin B complex 1 ea PO DAILY 01/08/16 12/14/20 History zinc 50 mg PO DAILY 01/08/16 12/14/20 History cholecalciferol (vitamin D3) 1,000 unit PO DAILY 12/24/18 12/14/20 History [Vitamin D3] rosuvastatin 20 mg PO DAILY 11/14/20 12/14/20 History amlodipine 5 mg tablet 5 mg PO BID tab 12/07/20 12/14/20 History enalapril maleate 5 mg tablet 20 mg PO BID tab 12/07/20 12/14/20 History Exam Narrative Exam Narrative: 133/78, 62, 36.1, 16, 99% RA. HEENT atraumatic; neck supple, JVP<4cm; lungs clear; heart RRR; abdomen soft and NT; extremities w/o edema, pulse 2+/=; neuro Ox3, moves all 4s Results Labs Result diagrams: 12/14/20 16:36 12/14/20 16:36 Labs: Laboratory Results - last 24 hr 12/14/20 12/14/20 12/14/20 16:36 16:36 19:30 WBC 5.70 RBC 3.69 L Hgb 11.9 Hct 36.5 MCV 98.9 H MCH 32.2 MCHC 32.6 RDW 13.2 Plt Count 237 MPV 10.1 Immature Gran % 0.2 Neutrophils % 51.7 Lymphocytes % 31.2 Monocytes % 9.3 Eosinophils % 6.5 Basophils % 1.1 Nucleated RBC % 0 Absolute Neutrophils 2.95 Absolute Lymphocytes 1.78 Absolute Monocytes 0.53 Absolute Eosinophils 0.37 Absolute Basophils 0.06 Sodium 140 Potassium 4.4 Chloride 105 Carbon Dioxide 29.3 Anion Gap 5.7 BUN 35 H Creatinine 1.2 H Estimated GFR/1.73 m2 43.01 Glucose 100 Calcium 8.9 Magnesium 2.1 Total Bilirubin 0.4 AST 38 H ALT 33 Alkaline Phosphatase 94 Troponin I < 0.05 NT-Pro-B Natriuret Pep 96 Total Protein 6.8 Albumin 3.6 TSH 4.59 H Serum HCG, Qual Cancelled 12/14/20 19:35 WBC RBC Hgb Hct MCV MCH MCHC RDW Plt Count MPV Immature Gran % Neutrophils % Lymphocytes % Monocytes % Eosinophils % Basophils % Nucleated RBC % Absolute Neutrophils Absolute Lymphocytes Absolute Monocytes Absolute Eosinophils Absolute Basophils Sodium Potassium Chloride Carbon Dioxide Anion Gap BUN Creatinine Estimated GFR/1.73 m2 Glucose Calcium Magnesium Total Bilirubin AST ALT Alkaline Phosphatase Troponin I < 0.05 NT-Pro-B Natriuret Pep Total Protein Albumin TSH Serum HCG, Qual Last Vital Signs Temp 36.1 C L 12/14/20 15:41 Pulse 62 12/14/20 19:01 Resp 16 12/14/20 19:20 BP 133/78 12/14/20 18:45 Pulse Ox 99 12/14/20 20:10
[2020-12-14 23:11] LABS: Source Nasal/Nares
[2020-12-15] VITALS (112 sets, daily range): BP systolic 114–139; BP diastolic 68–93; PULSE 52–70; RESP 12–25; O2SAT 100
[2020-12-15 00:03] LABS: COVID-19 PCR Negative (Negative)
[2020-12-15] MEDS: Lactated Ringers 1,000 ML 50 ML IV (00:10)
[2020-12-15] MEDS: Melatonin 3 MG TAB PO (00:12)
[2020-12-15 04:50] LABS: Troponin I < 0.05 ng/mL (<0.06)
--- NOTE | 2020-12-15 07:15 | RT.EKG_ITS ---
APPROVED REPORT Exam: Resting ECG Reason for Exam: chest pain Patient Location: I HR:57 bpm ECG Measurements Heart Rate 57 AXIS TX 179 P 76 QRSd 97 QRS 18 QT 449 T 82 QTc 439 Conclusion Sinus bradycardia...rate< 60 Probable left atrial enlargement...P >50mS, <-0.10mV V1 Nonspecific T abnormalities, lateral leads...T <-0.10mV, I aVL V5 V6
--- NOTE | 2020-12-15 08:10 | W.PM.PROGNOT ---
Subjective Subjective Interval history since last seen: No CP overnight or this am. Echo this am. LR @ 50 cc. SB 58-65. BP 123/72 Not requiring oxygen. Objective Last Vital Signs Temp 36.4 C L 12/14/20 23:23 Pulse 60 12/15/20 03:31 Resp 19 12/15/20 03:31 BP 114/93 H 12/15/20 03:31 Pulse Ox 100 12/14/20 23:23 Laboratory Results - last 24 hr 12/14/20 12/14/20 12/14/20 16:36 16:36 19:30 WBC 5.70 RBC 3.69 L Hgb 11.9 Hct 36.5 MCV 98.9 H MCH 32.2 MCHC 32.6 RDW 13.2 Plt Count 237 MPV 10.1 Immature Gran % 0.2 Neutrophils % 51.7 Lymphocytes % 31.2 Monocytes % 9.3 Eosinophils % 6.5 Basophils % 1.1 Nucleated RBC % 0 Absolute Neutrophils 2.95 Absolute Lymphocytes 1.78 Absolute Monocytes 0.53 Absolute Eosinophils 0.37 Absolute Basophils 0.06 Sodium 140 Potassium 4.4 Chloride 105 Carbon Dioxide 29.3 Anion Gap 5.7 BUN 35 H Creatinine 1.2 H Estimated GFR/1.73 m2 43.01 Glucose 100 Calcium 8.9 Magnesium 2.1 Total Bilirubin 0.4 AST 38 H ALT 33 Alkaline Phosphatase 94 Troponin I < 0.05 NT-Pro-B Natriuret Pep 96 Total Protein 6.8 Albumin 3.6 TSH 4.59 H Serum HCG, Qual Cancelled COVID-19 Source SARS-CoV-2 (PCR) 12/14/20 12/14/20 12/15/20 19:35 22:15 04:18 WBC RBC Hgb Hct MCV MCH MCHC RDW Plt Count MPV Immature Gran % Neutrophils % Lymphocytes % Monocytes % Eosinophils % Basophils % Nucleated RBC % Absolute Neutrophils Absolute Lymphocytes Absolute Monocytes Absolute Eosinophils Absolute Basophils Sodium Potassium Chloride Carbon Dioxide Anion Gap BUN Creatinine Estimated GFR/1.73 m2 Glucose Calcium Magnesium Total Bilirubin AST ALT Alkaline Phosphatase Troponin I < 0.05 < 0.05 NT-Pro-B Natriuret Pep Total Protein Albumin TSH Serum HCG, Qual COVID-19 Source Nasal/Nares SARS-CoV-2 (PCR) Negative
[2020-12-15] MEDS: Aspirin 325 MG TAB PO (08:34)
[2020-12-15] MEDS: amLODIPine 5 MG TAB PO ×2 (08:35→19:12)
[2020-12-15] MEDS: Rosuvastatin 10 MG TAB 20 MG PO (08:36)
[2020-12-15] MEDS: Enalapril 5 MG TAB 20 MG PO ×2 (08:37→19:11)
--- NOTE | 2020-12-15 08:47 | DI.US_ITS ---
APPROVED REPORT EXAM: Comprehensive 2D, Doppler, and color-flow Echocardiogram Patient Location: In-Patient Room/Bed: [id number] Indications: Unstable Angina Other Information Study Quality: Adequate Conclusion Left Ventricle : The left ventricle is normal size. The left ventricular ejection fraction is within the normal range. There is normal left ventricular wall thickness. There is discrete upper septal wa ll thickening. There is normal LV segmental wall motion. LVEF is 60%. Right Ventricle : The right ventricle is normal size. The right ventricular systolic function is norm al. The RVSP is 37.6mmHg. Atria : The left atrium size is normal. Right atrium is mildly dilated. Mitral Valve : The mitral valve is normal in structure. Mild mitral regurgitation. No evidence of ida ral valve stenosis. Great Vessels : The aortic root is normal in size. Ascending aorta is not well visualized. Aortic arc h is normal in caliber. The IVC collapses <50% with inspiration. Please see remainder of study for further details. Wall motion Left Ventricle The left ventricle is normal size. The left ventricular ejection fraction is within the normal range. There is normal left ventricular wall thickness. There is discrete upper septal wall thickening. The re is normal LV segmental wall motion. There is no ventricular septal defect visualized. LVEF is 60%. Right Ventricle The right ventricle is normal size. The right ventricular systolic function is normal. The RVSP is 37 .6mmHg. Atria The left atrium size is normal. Right atrium is mildly dilated. The interatrial septum is intact with no evidence for an atrial septal defect. Aortic Valve The Aortic valve is sclerotic. Aortic valve is trileaflet. There is no aortic valvular stenosis. Trac e aortic regurgitation. Mitral Valve The mitral valve is normal in structure. No evidence of mitral valve stenosis. Mild mitral regurgitat ion. Tricuspid Valve The tricuspid valve is normal in structure. There is no tricuspid valve stenosis. Mild tricuspid regu rgitation. Pulmonic Valve The pulmonary valve is normal in structure. There is no pulmonic valvular stenosis. Trace pulmonic re gurgitation. Great Vessels The aortic root is normal in size. Ascending aorta is not well visualized. Aortic arch is normal in c aliber. The IVC collapses <50% with inspiration. Pericardium There is no pericardial effusion. 2D Dimensions IVSD d PLAX 0.97 cm F: 0.6-1.0 LV Vol A2C d MOD 63.7 mL LVPW d PLAX 0.93 cm F: 0.6 - 1.0 LV Vol A4C d MOD 79.9 mL LVID d PLAX 4.29 cm F: 3.8 - 5.2 LV EF A4C MOD 60.7 % LVDs 2.85 cm F: 2.2 - 3.5 LV EF A2C MOD 59.6 % Ao Root d 3.33 cm F: 2.7 - 3.3 LV EF Biplane MOD 58.6 % RA Area A4C 13.77 cm2 SV 42.14 mL RA Vol/ BSA A4C s A-L 24.8 mL/m2 SV Index 24.90 mL/m2 LV EF Teichholz 62.2 % LVEF (Whitehead's) 58.63 % F: 54 - 74 LV Volume 57.17 mL F: 46 - 106 LV Volume Index 33.82 mL/m2 F: 29 - 61 LV Vol Biplane MOD 71.9 mL FS 33.25 % M-Mode TAPSE 3.21 cm (M/F) >1.7 LV Diastology E/A Ratio 1.0 MV E Vmax 0.63 (0.4-1.3 m/s) MV A Vmax 0.65 (0.4-1.3 m/s) MV E/A Ratio 0.90 Aortic Valve LVOT Area 3.67 cm2 AoV Area Vmax 2.67 cm2 LVOT Vmax 1.17 m/s AoV Area/ BSA (Vmax) 1.58 cm2/m2 LVOT Mean Rzea. 0.78 m/s EDITH Mean Reza. 2.40 cm2 LVOT Peak Grad 5.5 mmHg EDITH Mean Reza. Index 1.42 cm2/m2 LVOT Mean Grad 2.8 mmHg LVOT VTI 0.265 m LVOT Diam s 2.15 cm AoV Vmax 1.61 m/s Velocity Ratio 0.72 AoV Mean Reza. 1.19 m/s AoV Peak Grad 10.4 mmHg LVOT SV 97.18 mL AoV Mean Grad 6.3 mmHg AoV VTI 0.430 m AoV Area VTI 2.26 cm2 AoV Area/ BSA (VTI) 1.33 cm/m2 Mitral Valve MV DT 231 (160-240 msec) MR Vmax 3.37 m/s MV PHT 67 msec MR VTI 1.142 m MV Area PHT 3.28 cm2 MR Peak Grad 45.5 mmHg MV VTI 0.238 m MR Mean Grad 33.2 mmHg MV VTI Annulus 0.231 m MV Area VTI 3.94 (4.0-6.0 cm2) Pulmonary Valve PV Vmax 1.04 (0.5-1.5 m/s) RVOT Peak Gr. 1.76 mmHg PV Peak Grad 4.3 mmHg RVOT Mean Gr. 1.10 mmHg PV Mean Grad 2.6 mmHg RVOT VTI 0.160 m PV VTI 0.260 m RVOT Vmax 0.66 m/s Tricuspid Valve TR Peak Grad 29.6 mmHg TR Vmax 2.72 m/s RA Pressure 8.00 mmHg RVSP (TR) 37.6 mmHg
--- NOTE | 2020-12-15 09:02 | NUR.NOTE ---
Patient advised she has home medications that are not currently on her medication list here at [facility]. Had to call [facility] for dosing on home medications, as the patient could not remember. Patient has requested metamucil. magnesium oxide 500 QHS, colace 200mg QHS, lubricating eye drops and Wellbutrin SR 150mg BID. Will follow up with the provider about these medications.
[2020-12-15 09:39] LABS: Anion Gap 8.7 mmol/L (3-11); BUN 27 mg/dL (7-18); CO2 26.3 mmol/L (21.0-32.0); CREATININE 0.9 mg/dL (0.55-1.02); Calcium 8.6 mg/dL (8.5-10.1); Calculated LDL 56 mg/dL (<100); Chloride 112 mmol/L (98-107); Cholesterol 135 mg/dL (<200); Estimated GFR 59.94 (mL/min/1.73m2); Glucose 97 mg/dL (74-106); HDL Cholesterol 71 mg/dL (40-60); Magnesium 2.1 mg/dL (1.8-2.4); Potassium 4.6 mmol/L (3.5-5.1); Sodium 147 mmol/L (136-145); Triglyceride 41 mg/dL (<150)
[2020-12-15] MEDS: SODIUM CHLORIDE 0.45% 1,000 ML 75 ML IV (11:21)
--- NOTE | 2020-12-15 13:53 | W.PM.DS.N ---
Date of service: 12/15/20 Time of Service: 13:54 DS: Diagnosis Discharge Diagnosis (1) Unstable angina: Status: Suspected (2) H/O syncope: Status: Chronic Asessment and Plan: while seated Extended cardiac monitoring with nonsustained SVT (3) Hypercholesterolemia: Status: Chronic (4) HTN (hypertension): Status: Chronic (5) COVID-19 ruled out by laboratory testing: Status: Ruled-out Discharge Plan Disposition Patient Disposition: [facility] Condition: Fair Discharge Details Reason For Visit: CP Admit Date/Time: 12/14/20 21:48 Admit Provider: Derek Butt Attending Provider: Derek Butt Primary Care Provider: Eric Graham Hospital Course Hospital Course: Ms Burnette is an 80 year old female with PMHx of hypertension, hyperlipidemia, non-oxygen dependent COPD, and a prior recent syncopal episode while seated who was observed on [facility] hospitalist service from 12/14/20 until 12/15/20 after presenting with chest discomfort (tightness) accompanied by dizziness at rest. The patient does have an abnormal EKG at baseline but this has not changed and her troponins have remained negative. She did not have recurrences of chest pain since her hospitalization with us. She did not have any evidence of arrhythmia with us, but the patient does describe several episodes of dizziness after running as well as a syncopal episode while seated. She had both extended cardiac monitoring and a stress echocardiogram done at [facility] earlier this summer. Based on results available to me, she appears to have had multiple bouts of nonsustained SVT on the Zio patch (or equivalent) as well as PVCs. She wore her monitor for 1 week. Her Stress echo did not show wall motion abnormalities but did not abnormalities in her EKG at baseline. Due to the recurrence of patient's symptoms at rest, unstable angina +/- SVT are suspected, and the patient was accepted in transfer at [facility] by Dr Perera of cardiology for further evaluation, including possible cardiac cath, unavailable at [facility]. Care for patient as well as completion of her transfer summary on day of transfer took 45 minutes. please, look at MAR for list of inpatient medications. The list below reflects the patient's outpatient medications. Home Meds and New Rx's Prescriptions: No Action amlodipine 5 mg tablet 5 mg PO BID RF: 0 enalapril maleate 5 mg tablet 20 mg PO BID RF: 0 multivitamin [Multi-Day] 1 EACH tablet 1 ea PO DAILY RF: 0 ascorbic acid (vitamin C) [Vitamin C] 1,000 MG tablet 1,000 mg PO DAILY RF: 0 aspirin,buffd-calcium carb-mag 325 MG tablet 325 mg PO DAILY RF: 0 zinc 50 MG tablet 50 mg PO DAILY RF: 0 docusate sodium [Stool Softener] 100 MG tablet 200 mg PO DAILY RF: 0 vitamin B complex 1 EACH capsule 1 ea PO DAILY RF: 0 fish oil-dha-epa 1 EACH capsule 1 ea PO DAILY RF: 0 magnesium oxide 500 MG capsule 500 mg PO DAILY RF: 0 Metamucil (with sugar) 2,730 GM powder 2.6 g PO DAILY RF: 0 cholecalciferol (vitamin D3) [Vitamin D3] 1,000 unit Tablet 1,000 unit PO DAILY RF: 0 rosuvastatin 20 mg tablet 20 mg PO DAILY RF: 0 Lubricating Tears 0.1-0.3 % Drops OPHTHALMIC (EYE) RF: 0 bupropion HCl [Wellbutrin SR] 150 mg Tablet Sustained-Release 12 Hr 150 mg PO BID RF: 0 Discharge Instructions Referrals: Eric Graham [Primary Care Provider] - Marleen Charles [NURSE PRACTITIONER] - Activity:: OOB to chair Equipment/Supplies:: No Equipment Needed Diet:: NPO Discharge Orders Discharge Orders: Discharge Order (Routine); Ordered 12/15/20 Ordered By: Yamila White DS: Summary Time Spent with Patient providing and/or coordinating discharge services: Greater than 30 minutes Status at Discharge Functional status at discharge: independent ambulation Overall status at discharge: patient is not back to baseline Mental Status: mental status grossly normal Speech and Movement: speech and movement normal Mood: congruent mood Affect: normal affect Exam Narrative Exam Narrative: General: Pleasant mildly anxious elderly female, slightly hard of hearing, A&Ox3, looks well HEENT: EOMI, MMM Heart: RRR, no m/r/g Lungs: CTAB Abdomen: soft, nontender, nondistended Extremities: no edmea BLE's Psych Mental Status: mental status grossly normal Speech and Movement: speech and movement normal Mood: congruent mood Affect: normal affect DS: Data Vitals/I&O Vitals and I&O: Vital Signs Temperature 36.4 C L 12/14/20 23:23 Temperature Source Temporal Artery Scan 12/14/20 23:23 Pulse 56 L 12/15/20 13:15 Pulse Rhythm Regular 12/15/20 08:19 Pulse 59 L 12/15/20 13:15 Respiratory Rate 18 12/15/20 13:15 Respiratory Effort Non-Labored 12/15/20 08:19 Respiratory Depth Normal 12/15/20 08:19 Respiratory Pattern Normal 12/15/20 08:19 Blood Pressure 139/69 12/15/20 13:15 Blood Pressure Mean 86 12/15/20 13:15 Blood Pressure Position Sitting 12/14/20 15:41 Pulse Oximetry 100 12/14/20 23:23 Oxygen Delivery Method Room Air 12/14/20 23:23 Oxygen Flow Rate 0 12/14/20 23:23 Pain Level 0 12/15/20 08:34 Intake & Output 12/14/20 12/15/20 12/15/20 23:59 11:59 23:59 Intake Total 1039.167 / 1039.167 Output Total 120 / 120 500 / 500 Balance -110 / -110 539.167 / 539.167 Weight 61.36 kg Intake: IV 559.167 / 559.167 Oral 480 / 480 Output: Urine 120 / 120 500 / 500 Other: Urine Color Yellow Yellow Urine Appearance Clear Clear Urine Odor None Voiding Methods Bedside Commode Bedside Commode Data Completed and Pending Completed studies during hospitalization [Text1]: CTA chest: Apical scarring and emphysematous changes. No evidence of pulmonary embolism. Echo: Left Ventricle : The left ventricle is normal size. The left ventricular ejection fraction is within the normal range. There is normal left ventricular wall thickness. There is discrete upper septal wall thickening. There is normal LV segmental wall motion. LVEF is 60%. Right Ventricle : The right ventricle is normal size. The right ventricular systolic function is normal. The RVSP is 37.6mmHg. Atria : The left atrium size is normal. Right atrium is mildly dilated. Mitral Valve : The mitral valve is normal in structure. Mild mitral regurgitation. No evidence of mitral valve stenosis. Great Vessels : The aortic root is normal in size. Ascending aorta is not well visualized. Aortic arch is normal in caliber. The IVC collapses <50% with inspiration. Please see remainder of study for further details. Labs on day of discharge: Labs from last 24 hours 12/15/20 12/15/20 12/14/20 09:00 04:18 22:15 WBC RBC Hgb Hct MCV MCH MCHC RDW Plt Count MPV Immature Gran % Neutrophils % Lymphocytes % Monocytes % Eosinophils % Basophils % Nucleated RBC % Absolute Neutrophils Absolute Lymphocytes Absolute Monocytes Absolute Eosinophils Absolute Basophils Sodium 147 H Potassium 4.6 Chloride 112 H Carbon Dioxide 26.3 Anion Gap 8.7 BUN 27 H Creatinine 0.9 Estimated GFR/1.73 m2 59.94 Glucose 97 Calcium 8.6 Magnesium 2.1 Total Bilirubin AST ALT Alkaline Phosphatase Troponin I < 0.05 NT-Pro-B Natriuret Pep Total Protein Albumin Triglycerides 41 Total Cholesterol 135 LDL Cholesterol, Calc 56 HDL Cholesterol 71 TSH Serum HCG, Qual COVID-19 Source Nasal/Nares SARS-CoV-2 (PCR) Negative 12/14/20 12/14/20 12/14/20 19:35 19:30 16:36 WBC 5.70 RBC 3.69 L Hgb 11.9 Hct 36.5 MCV 98.9 H MCH 32.2 MCHC 32.6 RDW 13.2 Plt Count 237 MPV 10.1 Immature Gran % 0.2 Neutrophils % 51.7 Lymphocytes % 31.2 Monocytes % 9.3 Eosinophils % 6.5 Basophils % 1.1 Nucleated RBC % 0 Absolute Neutrophils 2.95 Absolute Lymphocytes 1.78 Absolute Monocytes 0.53 Absolute Eosinophils 0.37 Absolute Basophils 0.06 Sodium Potassium Chloride Carbon Dioxide Anion Gap BUN Creatinine Estimated GFR/1.73 m2 Glucose Calcium Magnesium Total Bilirubin AST ALT Alkaline Phosphatase Troponin I < 0.05 NT-Pro-B Natriuret Pep Total Protein Albumin Triglycerides Total Cholesterol LDL Cholesterol, Calc HDL Cholesterol TSH Serum HCG, Qual Cancelled COVID-19 Source SARS-CoV-2 (PCR) 12/14/20 16:36 WBC RBC Hgb Hct MCV MCH MCHC RDW Plt Count MPV Immature Gran % Neutrophils % Lymphocytes % Monocytes % Eosinophils % Basophils % Nucleated RBC % Absolute Neutrophils Absolute Lymphocytes Absolute Monocytes Absolute Eosinophils Absolute Basophils Sodium 140 Potassium 4.4 Chloride 105 Carbon Dioxide 29.3 Anion Gap 5.7 BUN 35 H Creatinine 1.2 H Estimated GFR/1.73 m2 43.01 Glucose 100 Calcium 8.9 Magnesium 2.1 Total Bilirubin 0.4 AST 38 H ALT 33 Alkaline Phosphatase 94 Troponin I < 0.05 NT-Pro-B Natriuret Pep 96 Total Protein 6.8 Albumin 3.6 Triglycerides Total Cholesterol LDL Cholesterol, Calc HDL Cholesterol TSH 4.59 H Serum HCG, Qual COVID-19 Source SARS-CoV-2 (PCR) [facility] Medical History COPD (chronic obstructive pulmonary disease) HTN (hypertension) Hypercholesterolemia Supraventricular tachycardia, nonsustained Syncope Surgical History S/P arthroscopic knee surgery S/P hysterectomy Family History Father Heart disease Social History Smoking/Tobacco Use Status: Current-Occasional Smoking risk assessment performed?: Yes Alcohol Intake: current Alcohol Intake frequency: a few times a month Drug use: Never Do you feel safe at home: Yes Do you feel safe in your relationship?: Yes
[2020-12-15] MEDS: Vitamins B Comp w/C TAB 1 TAB PO (14:21)
[2020-12-15] MEDS: Omega-3 Fatty Acids 1000 MG CAP PO (14:22)
[2020-12-15] MEDS: Multivitamin TAB 1 TAB PO (14:22)
[2020-12-15] MEDS: Magnesium Oxide 400 MG TAB PO (14:23)
[2020-12-15] MEDS: Cholecalciferol (Vitamin D3) 1,000 UNIT TAB 1000 UNITS PO (14:23)
[2020-12-15] MEDS: Refresh PLUS Eye Drops 0.4ml OP (14:24)
[2020-12-15] MEDS: buPROPion-CR 150 MG TABCR PO ×2 (15:04→19:11)
--- NOTE | 2020-12-15 15:27 | CHAPLAIN ---
I had a brief visit with Josie while she was waiting to be transferred to [facility]. She wanted to make sure her friend would be able to meet her at [facility] and speak with doctors with her, as Josie was worried she might miss some information. Her son from [place] is at her home to take care of Josie's who has Alzheimer's. I gave Josie a prayer shawl.
== END 2020-12-15 21:16 ==
LOC: ER 21:53 → ICU 22:48
PROVIDERS: Internal Medicine; Admitting Provider General Practice; Emergency Provider Physician Assistant; PCP Internal Medicine; Visit Provider General Practice
DX: R07.89 Other chest pain (principal); I10 Essential (primary) hypertension; J44.9 Chronic obstructive pulmonary disease, unspecified; E78.00 Pure hypercholesterolemia, unspecified; F17.210 Nicotine dependence, cigarettes, uncomplicated; Z79.899 Other long term (current) drug therapy; R94.31 Abnormal electrocardiogram [ECG] [EKG]; R42 Dizziness and giddiness; Z20.822 Contact with and (suspected) exposure to COVID-19; I34.0 Nonrheumatic mitral (valve) insufficiency; I47.1 Supraventricular tachycardia; I71.2 Thoracic aortic aneurysm, without rupture
CPT/HCPCS: 36415; 71275; 80048; 80053; 80061; 87635; 93005; 93306; 99285; 83735; 83880; 84443; 84484; 84703; 85025; 93010; 99217; 99219; G0378; J3490

== ENCOUNTER 2021-01-15 12:24 | Outpatient (CLI) | payer MEDICARE, SELFPAY ==
--- NOTE | 2021-01-15 12:15 | RT.EKG_ITS ---
APPROVED REPORT Exam: Resting ECG Reason for Exam: afib Patient Location: O HR:65 bpm ECG Measurements Heart Rate 65 AXIS CO 190 P 67 QRSd 100 QRS 0 QT 412 T 181 QTc 429 Conclusion Sinus rhythm...normal P axis, V-rate 50- 99 Left atrial enlargement...P, P'>60mS, <-0.15mV V1 LVH with secondary repolarization abnormality...multi-LVH criteria, abnrm ST-T
== END 2021-01-15 12:25 | disposition home or self-care (01) ==
LOC: DI.CARD 12:25
PROVIDERS: PCP Internal Medicine; Visit Provider Internal Medicine Cardiovascular Disease
DX: I48.0 Paroxysmal atrial fibrillation (principal); Z87.898 Personal history of other specified conditions; Z95.1 Presence of aortocoronary bypass graft
CPT/HCPCS: 93010

== ENCOUNTER → 2021-01-15 13:19 | Outpatient (BNVA) | payer MEDICARE, SELFPAY | PROVIDERS: PCP Nurse Practitioner; Referring Provider Internal Medicine; Visit Provider Internal Medicine Cardiovascular Disease | DX: I48.0 Paroxysmal atrial fibrillation (principal); Z95.1 Presence of aortocoronary bypass graft; Z98.890 Other specified postprocedural states; E78.00 Pure hypercholesterolemia, unspecified; I10 Essential (primary) hypertension | CPT/HCPCS: 93005; 99204; 99214 ==

== ENCOUNTER 2021-02-01 11:00 | Outpatient (RCR) | payer MEDICARE, SELFPAY | END 2021-02-04 23:59 | disposition home or self-care (01) | LOC: CR 11:00 | PROVIDERS: PCP Nurse Practitioner; Visit Provider Family Medicine | DX: Z51.89 Encounter for other specified aftercare (principal); Z95.1 Presence of aortocoronary bypass graft | CPT/HCPCS: S9472 ==

== ENCOUNTER 2021-02-10 11:00 | Outpatient (RCR) | payer MEDICARE, SELFPAY | END 2021-03-07 23:59 | disposition home or self-care (01) | LOC: CR 11:00 | PROVIDERS: PCP Nurse Practitioner; Visit Provider Family Medicine | DX: I20.0 Unstable angina (principal); Z51.89 Encounter for other specified aftercare; Z95.1 Presence of aortocoronary bypass graft | CPT/HCPCS: S9472 ==

== ENCOUNTER → 2021-09-24 13:03 | Outpatient (BNVA) | payer MEDICARE, SELFPAY | PROVIDERS: PCP Nurse Practitioner Family; Referring Provider Nurse Practitioner; Visit Provider Internal Medicine Cardiovascular Disease | DX: I10 Essential (primary) hypertension (principal); Z95.1 Presence of aortocoronary bypass graft; E78.00 Pure hypercholesterolemia, unspecified | CPT/HCPCS: 99214; 99213 ==

== ENCOUNTER → 2022-09-29 13:29 | Outpatient (BNVA) | payer MEDICARE, SELFPAY | PROVIDERS: PCP Nurse Practitioner Family; Visit Provider Internal Medicine Cardiovascular Disease | DX: I48.0 Paroxysmal atrial fibrillation (principal); Z79.01 Long term (current) use of anticoagulants; Z95.1 Presence of aortocoronary bypass graft | CPT/HCPCS: 99213 ==

== ENCOUNTER 2023-01-05 19:04 | Outpatient (REF) | payer MEDICARE, SELFPAY ==
[2023-01-05 16:55] LABS: Bilirubin Negative (Negative); Blood Small (Negative); Clarity Clear (Clear); Glucose Negative (Negative); Ketones Negative (Negative); Leukocyte Esterase Moderate (Negative); Nitrite Negative (Negative); Specific Gravity <= 1.005 (1.005-1.025); Urobilinogen 0.2 mg/dL (Up to 0.2)
[2023-01-05 17:25] LABS: Bacteria Rare HPF (Negative); C & S Indicated? Yes; Crystals Negative HPF (Negative); Epithelial Cells Rare HPF (Negative); Mucus Negative (Negative); Other Cells Rare Transitional (Negative); WBC 20-50 HPF (0-5)
== END 2023-01-05 19:05 | disposition home or self-care (01) ==
LOC: NCHCN 19:04
PROVIDERS: PCP Nurse Practitioner Family; Visit Provider Nurse Practitioner Family
DX: R30.0 Dysuria (principal)
CPT/HCPCS: 87077; 81003; 81015; 87086; 87186

== ENCOUNTER 2023-09-28 08:26 | Outpatient (CLI) | payer MEDICARE, SELFPAY | END 2023-09-28 08:27 | disposition home or self-care (01) | LOC: DI.CARD 08:27 | PROVIDERS: PCP Nurse Practitioner Family; Visit Provider Internal Medicine Cardiovascular Disease | CPT/HCPCS: 93010 ==

== ENCOUNTER → 2023-10-23 12:51 | Outpatient (BNVA) | payer MEDICARE, SELFPAY | PROVIDERS: PCP Nurse Practitioner Family; Referring Provider Nurse Practitioner Family; Visit Provider Podiatrist | DX: I70.203 Unspecified atherosclerosis of native arteries of extremities, bilateral legs (principal); L84 Corns and callosities; B35.1 Tinea unguium; M20.41 Other hammer toe(s) (acquired), right foot; M20.42 Other hammer toe(s) (acquired), left foot; Z79.01 Long term (current) use of anticoagulants; R09.89 Other specified symptoms and signs involving the circulatory and respiratory systems; L60.3 Nail dystrophy; L65.9 Nonscarring hair loss, unspecified; R23.8 Other skin changes; L60.8 Other nail disorders; L85.1 Acquired keratosis [keratoderma] palmaris et plantaris | CPT/HCPCS: 11055; 11721 ==

== ENCOUNTER 2023-10-26 08:27 | Outpatient (CLI) | payer MEDICARE, SELFPAY ==
--- NOTE | 2023-10-26 08:15 | RT.EKG_ITS ---
APPROVED REPORT Exam: Resting ECG Reason for Exam: ASCVD Patient Location: O HR:69 bpm ECG Measurements Heart Rate 69 AXIS OH 186 P 70 QRSd 108 QRS -18 QT 421 T 68 QTc 451 Conclusion Sinus rhythm...normal P axis, V-rate 50- 99 Left atrial enlargement...P, P'>60mS, <-0.15mV V1 Borderline left axis deviation...QRS axis (-15,-29) Nonspecific repol abnormality, lateral leads...ST dep, T neg, I aVL V5 V6 Baseline wander in lead(s) II,III,aVF,V1,V4,V6
== END 2023-10-26 08:28 | disposition home or self-care (01) ==
LOC: DI.CARD 08:27
PROVIDERS: PCP Nurse Practitioner Family; Visit Provider Internal Medicine Cardiovascular Disease
DX: I25.10 Atherosclerotic heart disease of native coronary artery without angina pectoris
CPT/HCPCS: 93010

== ENCOUNTER → 2023-10-26 13:36 | Outpatient (BNVA) | payer MEDICARE, SELFPAY | PROVIDERS: PCP Nurse Practitioner Family; Visit Provider Internal Medicine Cardiovascular Disease | DX: I48.0 Paroxysmal atrial fibrillation (principal); Z95.1 Presence of aortocoronary bypass graft; I25.10 Atherosclerotic heart disease of native coronary artery without angina pectoris | CPT/HCPCS: 93005; 99213 ==

== ENCOUNTER 2023-10-28 20:21 | Observation (INO) | payer MEDICARE, SELFPAY ==
[2023-10-28] VITALS (69 sets, daily range): BP systolic 115–169; BP diastolic 48–94; PULSE 60–83; RESP 13–27; O2SAT 95
--- NOTE | 2023-10-28 20:15 | RT.EKG_ITS ---
APPROVED REPORT Exam: Resting ECG Reason for Exam: chest pain Patient Location: E HR:64 bpm ECG Measurements Heart Rate 64 AXIS CA 185 P 22 QRSd 105 QRS -6 QT 440 T -21 QTc 455 Conclusion Sinus rhythm...normal P axis, V-rate 60- 99 Probable left atrial enlargement...P >50mS, <-0.10mV V1 LVH with secondary repolarization abnormality...multi-LVH criteria, abnrm ST-T Inferior infarct, old...Q >35mS, II III aVF Physician: no stemi
[2023-10-28 20:39] LABS: Abs Immature Grans 0.03 10^3/uL (0.0-0.06); Absolute Eosinophil Count 0.18 10^3/uL (0.0-0.7); Absolute Lymphocyte Count 2.09 10^3/uL (1.2-3.4); Absolute Monocyte Count 0.71 10^3/uL (0.1-0.8); Basophils % 0.5 %; Eosinophils % 1.6 %; HCT 47.5 % (36.0-46.0); HGB 15.5 g/dL (11.2-15.7); Immature Grans % 0.3 %; MCH 31.4 pg (27.0-33.0); MCHC 32.6 % (32.0-36.0); MCV 96 fL (80-95); Monocytes % 6.5 %; Neutrophils % 72.1 %; Platelet Count 252 10^3/uL (130-400); RBC 4.93 10^6/uL (3.93-5.22); RDW 13.3 % (11.7-14.6); RDW-SD 47.8 fL; WBC 10.98 10^3/uL (4.4-10.8)
[2023-10-28 20:42] LABS: Absolute Basophil Count 0.05 10^3/uL (0.0-0.2); Absolute Neutrophil Count 7.92 10^3/uL (1.2-6.7)
--- NOTE | 2023-10-28 20:53 | DI.RAD_ITS ---
Exam(s) XR PORTABLE CHEST AP EXAM: XR PORTABLE CHEST AP CLINICAL HISTORY: left sided chest pain TECHNIQUE: 2D digital imaging was performed. COMPARISON: No exams were available for comparison FINDINGS: LUNGS: Mild fibrotic changes, otherwise clear. No pleural abnormality seen. HEART: Normal size. Status post CABG. AORTA: Normal diameter. Calcified BONES: Unremarkable for age. Soft tissues: Unremarkable. IMPRESSION: No acute findings. DATA REPOSITORY: RADIATION DOSE DELIVERED:
[2023-10-28 20:57] LABS: ALT 34 U/L (14-59); AST 45 U/L (15-37); Albumin 4.1 g/dL (3.4-5.0); Alkaline Phosphatase 137 U/L (46-116); Anion Gap 12.5 mmol/L (3-11); BUN 24 mg/dL (7-18); CO2 21.5 mmol/L (21.0-32.0); CREATININE 1.3 mg/dL (0.55-1.02); Calcium 9.8 mg/dL (8.5-10.1); Chloride 104 mmol/L (98-107); Estimated GFR 40.55 (mL/min/1.73m2); Glucose 118 mg/dL (74-106); Potassium 5.6 mmol/L (3.5-5.1); Sodium 138 mmol/L (136-145); Total Protein 8.2 g/dL (6.4-8.2); Troponin I < 50 ng/L (< or =60)
[2023-10-28 20:59] LABS: INR 1.1 (0.9-1.1); PTT Activated 24.5 sec (23.6-32.8); Prothrombin Time 11.1 sec (9.1-11.1)
[2023-10-28] MEDS: Albuterol 2.5 MG/3 ML INH SOLN VIAL UPD (21:36)
[2023-10-28] MEDS: Sodium Zirconium Cyclosilicate 10 GM PKT PO (21:37)
[2023-10-28] MEDS: Normal Saline 500 ML IV (21:40)
[2023-10-28] MEDS: Calcium Gluconate 4.65 MEQ/10 ML VIAL 4.65 MG IVP (21:53)
[2023-10-28] MEDS: Insulin REGULAR-Human 100 UNITS/ML UNIT IV (21:54)
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
[2023-10-28] MEDS: Dextrose 50%-Water 25 GM/50 ML SYR IVP (21:57)
--- NOTE | 2023-10-28 23:04 | DI.VRAD_ITS ---
PROCEDURE INFORMATION: Exam: XR Chest Exam date and time: 10/28/2023 8:42 PM Age: 82 years old Clinical indication: Pain; Left-sided; Prior surgery; Surgery date: 6+ months; Surgery type: Heart TECHNIQUE: Imaging protocol: Radiologic exam of the chest. Views: 1 view. COMPARISON: CT CHEST PE CTA 12/14/2020 5:34 PM FINDINGS: Lungs: Unremarkable. No consolidation. Pleural spaces: Unremarkable. No pleural effusion. No pneumothorax. Heart/Mediastinum: Unremarkable. No cardiomegaly. Bones/joints: Unremarkable. IMPRESSION: No acute findings. Dictated and Authenticated by: Mars Burgess MD. Ordering:JULIA Durbin MD
[2023-10-28 23:47] LABS: Anion Gap 9.8 mmol/L (3-11); BUN 24 mg/dL (7-18); CO2 24.2 mmol/L (21.0-32.0); CREATININE 1.2 mg/dL (0.55-1.02); Calcium 9.1 mg/dL (8.5-10.1); Chloride 108 mmol/L (98-107); Estimated GFR 44.64 (mL/min/1.73m2); Glucose 108 mg/dL (74-106); Potassium 3.8 mmol/L (3.5-5.1); Sodium 142 mmol/L (136-145)
[2023-10-29] VITALS (94 sets, daily range): BP systolic 127–134; BP diastolic 60–79; PULSE 67–77; RESP 13–24; TEMP 37.1–37.3; O2SAT 95–99
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
[2023-10-29 00:10] LABS: Troponin I < 50 ng/L (< or =60)
[2023-10-29] MEDS: Metoprolol 12.5 MG TAB PO ×2 (02:43→07:54)
[2023-10-29] MEDS: rOPINIRole 0.5 MG TAB 1 MG PO (02:44)
[2023-10-29 06:05] LABS: HCT 37.8 % (36.0-46.0); HGB 12.5 g/dL (11.2-15.7); MCH 31.8 pg (27.0-33.0); MCHC 33.1 % (32.0-36.0); MCV 96 fL (80-95); MPV 10.4 fL (8.0-11.0); Platelet Count 197 10^3/uL (130-400); RBC 3.93 10^6/uL (3.93-5.22); RDW 13.2 % (11.7-14.6); RDW-SD 47.4 fL; WBC 8.46 10^3/uL (4.4-10.8)
[2023-10-29 06:29] LABS: ALT 22 U/L (14-59); AST 28 U/L (15-37); Albumin 3.2 g/dL (3.4-5.0); Alkaline Phosphatase 105 U/L (46-116); Anion Gap 10.5 mmol/L (3-11); BUN 20 mg/dL (7-18); CO2 24.5 mmol/L (21.0-32.0); CREATININE 1.1 mg/dL (0.55-1.02); Calcium 8.7 mg/dL (8.5-10.1); Chloride 107 mmol/L (98-107); Estimated GFR 49.55 (mL/min/1.73m2); Glucose 100 mg/dL (74-106); Magnesium 1.6 mg/dL (1.8-2.4); Potassium 3.8 mmol/L (3.5-5.1); Sodium 142 mmol/L (136-145); Total Protein 6.2 g/dL (6.4-8.2); Troponin I < 50 ng/L (< or =60)
[2023-10-29] MEDS: MAGNESIUM SULFATE 2 GM/50 ML BAG IVINF (07:41)
[2023-10-29] MEDS: Normal Saline Flush 10 ML SYR IVP ×2 (07:41)
[2023-10-29] MEDS: Cholecalciferol (Vitamin D3) 1,000 UNIT TAB 1000 UNITS PO (07:54)
[2023-10-29] MEDS: Refresh PLUS Eye Drops 0.4ml OP (07:54)
[2023-10-29] MEDS: Enalapril 5 MG TAB 20 MG PO (07:54)
[2023-10-29] MEDS: Apixaban 5 MG TAB PO (07:54)
[2023-10-29] MEDS: Cyanocobalamin 500 MCG TAB 1000 MCG PO (07:54)
[2023-10-29] MEDS: Ascorbic Acid 500 MG TAB 1000 MG PO (07:54)
[2023-10-29] MEDS: amLODIPine 5 MG TAB PO (07:54)
[2023-10-29] MEDS: Loratidine 10 MG TAB PO (07:54)
[2023-10-29] MEDS: Fluticasone NASAL SPRAY 16 GM BTL NS (08:04)
--- NOTE | 2023-10-29 08:15 | RT.EKG_ITS ---
APPROVED REPORT Exam: Resting ECG Reason for Exam: chest pain, new strain on admission EKG Patient Location: I HR:60 bpm ECG Measurements Heart Rate 60 AXIS FL 193 P 61 QRSd 111 QRS -6 QT 426 T 106 QTc 426 Conclusion Sinus rhythm...normal P axis, V-rate 50- 99 LVH with secondary repolarization abnormality...multi-LVH criteria, abnrm ST-T Baseline wander in lead(s) V6
[2023-10-29] MEDS: buPROPion-CR 150 MG TABCR PO (09:38)
[2023-10-29 09:40] LABS: Troponin I < 50 ng/L (< or =60)
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
[2023-10-29 10:50] LABS: Magnesium 2.7 mg/dL (1.8-2.4)
== END 2023-10-29 10:35 | disposition home or self-care (01) ==
LOC: ER 10-29 01:40 → MS 10-29 01:59
PROVIDERS: Nurse Practitioner Acute Care; Admitting Provider Family Medicine; Emergency Provider Student in an Organized Health Care Education/Training Program; PCP Nurse Practitioner Family; Visit Provider Family Medicine
DX: R07.89 Other chest pain (principal); I25.10 Atherosclerotic heart disease of native coronary artery without angina pectoris; E87.5 Hyperkalemia; I48.0 Paroxysmal atrial fibrillation; Z95.1 Presence of aortocoronary bypass graft; I10 Essential (primary) hypertension; K59.09 Other constipation; Z79.899 Other long term (current) drug therapy; R94.31 Abnormal electrocardiogram [ECG] [EKG]; Z79.01 Long term (current) use of anticoagulants; I70.203 Unspecified atherosclerosis of native arteries of extremities, bilateral legs; J44.9 Chronic obstructive pulmonary disease, unspecified; I47.10 Supraventricular tachycardia, unspecified; R91.1 Solitary pulmonary nodule; G47.33 Obstructive sleep apnea (adult) (pediatric); I65.23 Occlusion and stenosis of bilateral carotid arteries; G89.29 Other chronic pain; M54.50 Low back pain, unspecified; E78.00 Pure hypercholesterolemia, unspecified
CPT/HCPCS: 00123; 36415; 80048; 80053; 85027; 93005; 94640; 96361; 96365; 96366; 96375; 99291; 71045; 83735; 84484; 85025; 85610; 85730; 93010; 99236; G0378; J0612; J1815; J3475; J3490; J7613

== ENCOUNTER → 2023-11-02 11:00 | Outpatient (BNVA) | payer MEDICARE, SELFPAY | PROVIDERS: PCP Nurse Practitioner Family; Referring Provider Nurse Practitioner Family; Visit Provider Internal Medicine Cardiovascular Disease | DX: R07.89 Other chest pain (principal); Z95.1 Presence of aortocoronary bypass graft | CPT/HCPCS: 99213 ==

== ENCOUNTER 2023-11-15 16:25 | Outpatient (REF) | payer MEDICARE, SELFPAY ==
[2023-11-15 17:54] LABS: BUN 30 mg/dL (7-18); CREATININE 1.4 mg/dL (0.55-1.02); Calcium 9.1 mg/dL (8.5-10.1); Chloride 108 mmol/L (98-107); Estimated GFR 36.87 (mL/min/1.73m2); Glucose 84 mg/dL (74-106); Magnesium 1.9 mg/dL (1.8-2.4); Potassium 4.9 mmol/L (3.5-5.1); Sodium 142 mmol/L (136-145)
== END 2023-11-15 16:26 | disposition home or self-care (01) ==
LOC: NCHCN 16:25
PROVIDERS: PCP Nurse Practitioner Family; Visit Provider Nurse Practitioner Family
DX: R79.0 Abnormal level of blood mineral (principal); E87.5 Hyperkalemia
CPT/HCPCS: 80048; 83735

== ENCOUNTER → 2024-01-03 11:03 | Outpatient (BNVA) | payer MEDICARE, SELFPAY | PROVIDERS: PCP Nurse Practitioner Family; Referring Provider Nurse Practitioner Family; Visit Provider Podiatrist | DX: M20.41 Other hammer toe(s) (acquired), right foot (principal); M20.42 Other hammer toe(s) (acquired), left foot; L84 Corns and callosities; B35.1 Tinea unguium; I70.203 Unspecified atherosclerosis of native arteries of extremities, bilateral legs; L60.3 Nail dystrophy; R09.89 Other specified symptoms and signs involving the circulatory and respiratory systems; L65.9 Nonscarring hair loss, unspecified; R60.0 Localized edema; L60.8 Other nail disorders | CPT/HCPCS: 11055; 11056; 11719; 11720 ==

== ENCOUNTER → 2024-11-07 10:42 | Outpatient (BNVA) | payer MEDICARE, SELFPAY | PROVIDERS: PCP Nurse Practitioner Family; Visit Provider Internal Medicine Cardiovascular Disease | DX: I48.0 Paroxysmal atrial fibrillation (principal); Z95.1 Presence of aortocoronary bypass graft; I10 Essential (primary) hypertension; Z63.4 Disappearance and death of family member | CPT/HCPCS: 99214 ==

== ENCOUNTER 2024-11-27 01:58 | Outpatient (CLI) | payer MEDICARE, SELFPAY ==
--- NOTE | 2024-11-27 | DI.RAD_ITS ---
Exam(s) XR HIP PELVIS ADULT BL EXAM: XR HIP PELVIS ADULT BL CLINICAL HISTORY: Primary OA of bilat hips, M16.0; Rt hip pain, M25.551; Lt hip pain, M25.552. TECHNIQUE: 2D digital imaging was performed. Three views. COMPARISON: No exams were available for comparison FINDINGS: BONES: The sacrum and portions of the fernie are obscured by overlying bowel gas and stool. No acute fracture is present. No bony destructive lesion is seen. JOINTS: There is severe narrowing of the left hip joint space. There is acetabular spurring as well as spurring at the margins of the femoral head. There is mild narrowing of the right hip joint space, also with periarticular spurring. SI joints and pubic symphysis are unremarkable. SOFT TISSUE: Vascular calcifications. IMPRESSION: Severe degenerative changes of the left hip. [id number] degenerative changes of the right hip. DATA REPOSITORY: RADIATION DOSE DELIVERED:
--- NOTE | 2024-11-27 | DI.RAD_ITS ---
Exam(s) XR KNEE LT 3V AP,LAT,CRYSTAL EXAM: XR KNEE LT 3V AP,LAT,CRYSTAL CLINICAL HISTORY: PAIN LEFT KNEE M25.562. TECHNIQUE: 2D digital imaging was performed. Three views. COMPARISON: MR MRI R LOWER JOINT WO CONT from 12/29/2015 FINDINGS: BONES: No acute fracture is present. No bony destructive lesion is seen. Enthesophyte at upper pole of the patella. JOINTS: The knee is normally aligned. No joint effusion is seen. Mild narrowing of the medial femoral tibial joint space. Mild periarticular spurring. SOFT TISSUE: Surgical clips medially. IMPRESSION: Mild degenerative changes. DATA REPOSITORY: RADIATION DOSE DELIVERED:
--- NOTE | 2024-11-27 | DI.RAD_ITS ---
Exam(s) XR KNEE RT 3V AP,LAT,CRYSTAL EXAM: XR KNEE RT 3V AP,LAT,CRYSTAL CLINICAL HISTORY: PAIN RT KNEE M25.561. TECHNIQUE: 2D digital imaging was performed. Three views. COMPARISON: CR XR KNEE LT 3V AP,LAT,CRYSTAL from 11/27/2024 FINDINGS: BONES: No acute fracture is present. No bony destructive lesion is seen. JOINTS: The knee is normally aligned. There is mild narrowing of the lateral femoral tibial joint space. This periarticular spurring throughout, greatest at the lateral femoral tibial joint. There is a moderate-sized joint effusion SOFT TISSUE: Vascular calcifications. Surgical clips medially. IMPRESSION: Moderate degenerative changes. DATA REPOSITORY: RADIATION DOSE DELIVERED:
--- NOTE | 2024-11-27 | DI.MAMMO_ITS ---
Exam(s) MAMMO SCREENING EXAM: MAMMO SCREENING CLINICAL HISTORY: Screening, Z12.31 TECHNIQUE: Bilateral full field digital CC and MLO mammographic images were obtained with 3D tomosynthesis and utilizing computer aided detection (CAD). COMPARISON: There are no priors for comparison at this time. Should they become available, they may be submitted and an addendum will be issued. FINDINGS: Masses/Architectural Distortion: No suspicious masses or areas of architectural distortion are present. Microcalcifications: No suspicious pleomorphic-type are seen. Skin Thickening/Nipple Retraction: None. IMPRESSION: 1. No evidence for malignancy is seen on this examination. 2. Unless there is more urgent need, screening mammography is recommended, as per [employer] guidelines. 3. The patient reports feeling a lump in the left breast. Ultrasound should be considered for further evaluation. BI-RADS Category 1 - Negative Breast Density - Category B - There are scattered areas of fibroglandular density. Breast density Category C or D implies that the patient has dense breast tissue. Dense breast tissue can make it harder to find cancer on a mammogram. Dense breast tissue is also associated with an increased risk of breast cancer. This information about the result of the mammogram report was provided to the patient to raise their awareness. Use this report when you speak with the patient about their risks for breast cancer, which includes their family history. At that time, you may recommend additional screening tests (Ultrasound or MRI) as these tests may add significant information. A negative radiographic report should not delay biopsy if a dominant or clinically suspicious mass is present. Up to ten percent of cancers are not identified on mammography. A negative report may reinforce clinical impression. Adenosis and dense breasts may obscure an underlying neoplasm. False positive reports average 6 to 10%. Patient will receive a letter notifying them of these results.
== END 2024-11-27 02:18 ==
PROVIDERS: PCP Nurse Practitioner Family; Visit Provider Nurse Practitioner Family
DX: Z12.31 Encounter for screening mammogram for malignant neoplasm of breast (principal); M25.562 Pain in left knee
CPT/HCPCS: 73521; 73562; 77063; 77067

== ENCOUNTER → 2024-12-24 08:36 | Outpatient (BNVA) | payer MEDICARE, SELFPAY | PROVIDERS: PCP Nurse Practitioner Family; Referring Provider Nurse Practitioner Family; Visit Provider Physician Assistant | DX: M16.0 Bilateral primary osteoarthritis of hip (principal); I10 Essential (primary) hypertension; J44.9 Chronic obstructive pulmonary disease, unspecified | CPT/HCPCS: 20611; J1010 ==

== ENCOUNTER → 2024-12-26 09:05 | Outpatient (BNVA) | payer MEDICARE, SELFPAY | PROVIDERS: PCP Nurse Practitioner Family; Referring Provider Nurse Practitioner Family; Visit Provider Podiatrist | DX: B35.1 Tinea unguium (principal); L84 Corns and callosities; I70.203 Unspecified atherosclerosis of native arteries of extremities, bilateral legs; I87.2 Venous insufficiency (chronic) (peripheral); L03.115 Cellulitis of right lower limb; I83.012 Varicose veins of right lower extremity with ulcer of calf; L97.919 Non-pressure chronic ulcer of unspecified part of right lower leg with unspecified severity; R60.0 Localized edema; M20.41 Other hammer toe(s) (acquired), right foot; M20.42 Other hammer toe(s) (acquired), left foot; I83.91 Asymptomatic varicose veins of right lower extremity; R09.89 Other specified symptoms and signs involving the circulatory and respiratory systems; R20.8 Other disturbances of skin sensation; L65.9 Nonscarring hair loss, unspecified; R23.4 Changes in skin texture; L60.2 Onychogryphosis; L60.8 Other nail disorders; L85.8 Other specified epidermal thickening | CPT/HCPCS: 11055; 11719 ==

== ENCOUNTER → 2025-01-09 08:36 | Outpatient (BNVA) | payer MEDICARE, SELFPAY | PROVIDERS: PCP Nurse Practitioner Family; Referring Provider Nurse Practitioner Family; Visit Provider Physician Assistant | DX: M17.0 Bilateral primary osteoarthritis of knee (principal) | CPT/HCPCS: 20610; J1010 ==

== ENCOUNTER 2025-01-16 15:53 | Outpatient (REF) | payer MEDICARE, SELFPAY ==
[2025-01-16 19:48] LABS: Anion Gap 10.1 mmol/L (3-11); BUN 18 mg/dL (7-18); CO2 26.9 mmol/L (21.0-32.0); Calcium 10.0 mg/dL (8.5-10.1); Chloride 101 mmol/L (98-107); Estimated GFR 84.17 (mL/min/1.73m2); Ferritin 95 ng/mL (8-252); Glucose 68 mg/dL (74-106); Magnesium 2.2 mg/dL (1.8-2.4); Potassium 4.6 mmol/L (3.5-5.1); Sodium 138 mmol/L (136-145)
[2025-01-16 20:07] LABS: Iron 104 ug/dL (50-170); Total Iron Binding Capacity 403 ug/dL (250-450); Transferrin Sat 26 % (15-50)
== END 2025-01-16 15:54 | disposition home or self-care (01) ==
LOC: NCHCN 15:53
PROVIDERS: PCP Nurse Practitioner Family; Visit Provider Nurse Practitioner Family
DX: G25.81 Restless legs syndrome (principal)
CPT/HCPCS: 80048; 82728; 83540; 83550; 83735